=== PATIENT | male | born 1955 | race Hispanic/Latino ===

== ENCOUNTER 2019-01-17 15:39 | Inpatient (IN) | payer MEDICARE ==
[2019-01-17] MEDS ORDERED: Dextrose 5% in Water 1,000 ML IV PRN (18:01)
[2019-01-17] MEDS ORDERED: Dextrose 50% Abboject 50 ML SYRINGE SLOW IVP PRN (18:01)
[2019-01-17] MEDS ORDERED: hydrALAZINE 20 MG/ML VIAL SLOW IVP PRN (18:53)
[2019-01-17 19:37] LABS: Bilirubin Negative (Negative); Blood, Urine Negative (Negative); Clarity CLEAR (Clear); Glucose, Urine (Dipstick) 500 mg/dL (Negative); Leukocyte Negative (Negative); Nitrite Negative (Negative); Protein, Urine (Dipstick) Negative (Neg-Trace); Specific Gravity, Urine 1.008 (1.002-1.036); Urobilinogen 0.2 mg/dL (0.2-1.0); pH, Urine 5.5 (5.0-9.0)
[2019-01-17 20:26] VITALS: BMI 23.8
--- NOTE | 2019-01-17 21:03 | HP ---
CHIEF COMPLAINT: Shortness of breath. HISTORY OF PRESENT ILLNESS: The patient is a very pleasant 63-year-old male with a past medical history of diabetes, hypertension and GERD, who presents to the hospital with complaints of shortness of breath and chest pain. The patient states that he has been having shortness of breath and chest pain on and off for multiple years. However, for the past couple weeks, his shortness of breath and chest tightness have become very significantly worse. The patient states that he also has been having paroxysmal nocturnal dyspnea, which has been going on for the past few years. However, the past few days, it has been worse. He also now is complaining of shortness of breath on minimal exertion. He denies any fevers or chills. The patient also notices for the past few days he has been having significant lower extremity swelling. The patient sometimes states that he gets some chest tightness, especially when he wakes up in the middle of the night that radiates up to his neck area. He also sometimes gets diaphoretic hands and sometimes at times at night when he wakes up, feels some palpitations. He also has had a 20 pound weight gain for the past 2-3 days. The patient actually did go to his PCP who then told him to come into the ER; however, patient did not want to go to the ER at that time. The patient states that last year he did go see a internet technology manager and had a Holter monitor and also had a stress test. However, patient nor the does not recall the results of those tests. PAST MEDICAL HISTORY: 1. He has a history of diabetes. 2. Hypertension. 3. Reflux. The patient states he has been very compliant with his medication. 4. He has also had a history of neuropathy. 5. Also has a history of some headaches. 6. Fibromyalgia. 7. Hyperlipidemia. PAST SURGICAL HISTORY: 1. He has had a history of left knee replacement. 2. He has had arthroscopic of the right knee 20 years ago. ALLERGIES: HE HAS NO KNOWN ALLERGIES. MEDICATIONS: 1. He is on metformin 3 times daily. He does not know the doses. 2. Gabapentin 3 times daily. 3. Lisinopril. 4. He is on metoprolol. He does not know the doses. 5. Pantoprazole. 6. Tramadol. 7. Aspirin. REVIEW OF SYSTEMS: All negative for the ones mentioned above in the HPI. FAMILY HISTORY: His sisters have history of heart disease. None in the parents. SOCIAL HISTORY: He denies any smoking history. Occasional alcohol use. No drug use. However, he does rub marijuana and alcohol in his body for fibromyalgia, which helps him. He is a full code and lives with his . PHYSICAL EXAMINATION: VITAL SIGNS: Temperature of 98.8, 132/85, 50, and 96% on room air. GENERAL: He is awake, alert, and oriented x3. Does not appear in any distress. HEENT: Normocephalic, atraumatic. No lymphadenopathy noted. Pupils are equal and reactive to light. CV: S1 and S2 present. There is some slight systolic murmur. LUNGS: Mild crackles to bilateral lower bases. No wheezing or rhonchi noted. ABDOMEN: Soft, mild tenderness to bilateral lower quadrant below the umbilical area on palpation. EXTREMITIES: Mild lower extremity edema. Pedal pulses present x2. He does have decreased hair loss to his lower extremity. NEUROVASCULAR: He has no focal deficits noted. SKIN: He does have some scars to his lower extremity, otherwise no other lesions noted. LABORATORY RESULTS: As of the following; WBCs of 7.1, hemoglobin of 12.6, hematocrit of 35.2, platelets of 217. His chemistry, sodium of 136, potassium 4.6, creatinine 1.55. I do not have a previous one, glucose of 450. BNP of 200. His urine does look pretty essentially normal. He did not have significant amount of glucose. He did have a chest x-ray done, which according to my interpretation, appeared to be pretty significantly normal. No infiltrates were noted and EKG appears to be sinus juan. ASSESSMENT AND PLAN: The patient is a very pleasant 63-year-old male who presents to the hospital with shortness of breath. 1. Shortness of breath could be possibly due to congestive heart failure, unknown type versus coronary artery disease versus gastroesophageal reflux disease versus anxiety. At this time, we will get an echocardiogram. We will trend his troponin x3 and give him some IV diuretics and continue to monitor. We will also add a TSH on this patient. 2. Diabetes. We will continue his sliding scale insulin. We will hold the metformin for now and check a hemoglobin A1c. 3. Acute kidney injury: I am not sure what the patient's baseline creatinine is. We will hold the lisinopril for now. May get a renal ultrasound to rule out any issues. We will continue to monitor going. 4. Possible coronary artery disease. We will continue to trend his troponin. His heart rate is bradycardic. The patient's family is not aware of this. We will await and see what the echocardiogram shows. If needed, may consider getting Cardiology consult. 5. Deep venous thrombosis prophylaxis: We will put the patient on subcutaneous heparin. Job ID: [id number]
[2019-01-17] MEDS: traMADol HCl 50 MG TAB PO PRN (22:31)
[2019-01-17] MEDS: Heparin 5,000 UNITS/ML VIAL SC SCH (22:31)
[2019-01-17] MEDS: HumaLOG 300 UNITS/3 ML VIAL SC PRN (22:32)
[2019-01-17 23:04] LABS: Bilirubin Negative (Negative); Blood, Urine Negative (Negative); Clarity CLEAR (Clear); Glucose, Urine (Dipstick) >=1000 mg/dL (Negative); Leukocyte Negative (Negative); Nitrite Negative (Negative); Protein, Urine (Dipstick) Negative (Neg-Trace); Specific Gravity, Urine 1.012 (1.002-1.036); Urobilinogen 0.2 mg/dL (0.2-1.0); pH, Urine 7.5 (5.0-9.0)
[2019-01-17 23:06] LABS: Bacteria/HPF None Seen HPF (None Seen); Hyaline Casts/LPF 0-3 HYALINE CAST LPF (0-3 Hyaline); RBC/HPF 0-3 HPF (0-3); Squamous Epithelial None Seen HPF (0-3); WBC/HPF None Seen HPF (0-3)
[2019-01-17 23:07] LABS: Urine Culture Reflex No No
[2019-01-18 06:46] LABS: Hemoglobin A1c 8.2 % (4.0-6.0)
[2019-01-18 06:59] LABS: Cardiac Risk 5.9 (Less than 4.5)
--- NOTE | 2019-01-18 07:42 | ULT ---
BILATERAL RENAL ULTRASOUND: Date: 01/18/19 No prior comparison imaging. CLINICAL INDICATION: Acute kidney insufficiency, renal failure. FINDINGS: Symmetric size of each kidney measuring nearly 10.0 cm bilaterally. No overt hydronephrosis or suspic ious renal lesion. Utilizing Doppler evaluation, ureteral jets ae elicited within the urinary bladder from each ureter. Urinary bladder is grossly unremarkable. IMPRESSION: No evidence of hydronephrosis or suspicious renal lesion. POS: FLOR
[2019-01-18] MEDS ORDERED: Sodium Chloride 0.9% 10 ML ONE (08:11)
[2019-01-18] MEDS: Furosemide 40 MG/4 ML VIAL SLOW IVP SCH (08:51)
[2019-01-18] MEDS: Aspirin 81 mg Enteric Coated Tablet PO SCH (08:51)
[2019-01-18] MEDS: traMADol HCl 50 MG TAB PO PRN ×2 (09:37→17:32)
[2019-01-18] MEDS: Heparin 5,000 UNITS/ML VIAL SC SCH ×3 (09:39→21:08)
[2019-01-18] MEDS: HumaLOG 300 UNITS/3 ML VIAL SC PRN ×3 (12:37→21:08)
--- NOTE | 2019-01-18 18:31 | PDOC.PN ---
- Subjective Encounter Start Date: 01/18/19 Encounter Start Time: 11:15 Subjective: pt up in bed feels much better today - Objective Vital Signs & Weight: Vital Signs (12 hours) Temp Pulse Resp BP Pulse Ox 01/18/19 15:11 98 F 60 16 109/55 L 98 01/18/19 11:31 98.1 F 66 18 118/59 L 98 01/18/19 07:45 97.5 F L 66 16 121/57 L 97 Weight Weight 143 lb 8 oz I&O: 01/17/19 01/18/19 01/19/19 06:59 06:59 06:59 Intake Total 510 1250 Output Total 900 1550 Balance -390 -300 Additional Labs: Accuchecks 01/18/19 01/18/19 01/18/19 16:55 11:03 05:40 POC Glucose 274 H 304 H 110 01/17/19 20:32 POC Glucose 313 H Phys Exam - Physical Examination Respiratory: no wheezing, no rales, no rhonchi, wheezing present, clear to auscultation bilateral Cardiovascular: RRR, no significant murmur, no rub, gallop, irregular Gastrointestinal: soft, non-tender, no distention, positive bowel sounds Musculoskeletal: no edema, pulses present, edema present Dx/Plan (1) SOB (shortness of breath) Code(s): R06.02 - SHORTNESS OF BREATH Status: Acute (2) Diabetes Code(s): E11.9 - TYPE 2 DIABETES MELLITUS WITHOUT COMPLICATIONS Status: Acute (3) HTN (hypertension) Code(s): I10 - ESSENTIAL (PRIMARY) HYPERTENSION Status: Acute (4) BEATA (acute kidney injury) Code(s): N17.9 - ACUTE KIDNEY FAILURE, UNSPECIFIED Status: Acute - Plan will continue lasix for now -: appear diastolic HF, -: will get stress test records from [place]. -: will start pt on statin -: lisinopril on hold for beata not sure if this is his baseline * . Review of Systems - Review of Systems Respiratory: negative: Cough, Dry, Shortness of Breath, Hemoptysis, SOB with Excertion, Pleuritic Pain, Sputum, Wheezing Cardiovascular: negative: chest pain, palpitations, orthopnea, paroxysmal nocturnal dyspnea, edema, light headedness, other Gastrointestinal: negative: Nausea, Vomiting, Abdominal Pain, Diarrhea, Constipation, Melena, Hematochezia, Other Genitourinary: negative: Dysuria, Frequency, Incontinence, Hematuria, Retention , Other - Medications/Allergies Allergies/Adverse Reactions: Allergies Allergy/AdvReac Type Severity Reaction Status Date / Time No Known Drug Allergies Allergy Verified 01/17/19 21:09 Medications: Current Medications Aspirin (Ecotrin) 81 mg PO DAILY [facility] Last Admin: 01/18/19 08:51 Dose: 81 mg Dextrose/Water (Dextrose 50%) 25 gm SLOW IVP PRN PRN PRN Reason: Hypoglycemia Furosemide (Lasix) 40 mg SLOW IVP DAILY [facility] Last Admin: 01/18/19 08:51 Dose: 40 mg Gabapentin (Neurontin) 300 mg PO TID [facility] Glucagon (Glucagon) 1 mg IM PRN PRN PRN Reason: Hypoglycemia Heparin Sodium (Porcine) (Heparin) 5,000 units SC TID [facility] Last Admin: 01/18/19 14:16 Dose: 5,000 units Hydralazine HCl (Apresoline) 5 mg SLOW IVP Q6H PRN PRN Reason: SBP >= 180 Dextrose/Water (D5w) 1,000 mls @ 0 mls/hr IV .Q0M PRN PRN Reason: Hypoglycemia Insulin Human Lispro (Humalog) 0 units SC .MODERATE SLIDING SC PRN PRN Reason: Moderate Correctional Scale Last Admin: 01/18/19 17:28 Dose: 6 units Insulin Human Lispro (Humalog) 0 units SC .BEDTIME SLIDING SC PRN; Protocol PRN Reason: BEDTIME SLIDING SCALE Last Admin: 01/17/19 22:32 Dose: 4 unit Tramadol HCl (Ultram) 50 mg PO Q4H PRN PRN Reason: Pain Last Admin: 01/18/19 17:32 Dose: 50 mg
[2019-01-18] MEDS: Gabapentin 300 MG CAP PO SCH (21:08)
[2019-01-18] MEDS: Atorvastatin Calcium 40 MG TAB PO SCH (21:08)
[2019-01-19 05:07] LABS: #Eosinphils 0.1 thou/uL (0.0-0.7); #Monocytes 0.4 thou/uL (0.11-0.59); #Neutrophils 2.4 thou/uL (1.40-6.50); %Basophils 1.1 % (0.0-1.0); %Eosinophils 3.2 % (0.0-10.0); %Lymphocytes 25.2 % (21.0-51.0); %Monocytes 9.2 % (0.0-10.0); %Neutrophils 61.3 % (42.0-75.0); Hemoglobin 12.8 g/dL (14.0-18.0); Mean Corpuscular HGB CONC 34.3 g/dL (32.0-36.0); Mean Corpuscular Hemoglobin 30.9 pg (27.0-31.0); Mean Corpuscular Volume 90.2 fL (78.0-98.0); Mean Platelet Volume 7.7 fL (7.4-10.4); Platelet Count 197 thou/uL (130-400); RBC Distribution Width 11.3 % (11.5-14.5); Red Blood Cell (RBC) Count 4.15 mill/uL (4.70-6.10); White Blood Cell (WBC) Count 3.9 thou/uL (4.8-10.8)
[2019-01-19 05:26] LABS: Anion Gap 15 mmol/L (10-20); BUN (Urea Nitrogen) 11 mg/dL (8.4-25.7); Calc. Creatinine Clearance 58 mL/min (70-130); Calcium 9.9 mg/dL (7.8-10.44); Carbon Dioxide 26 mmol/L (23-31); Chloride 102 mmol/L (98-107); Estimated GFR-MDRD 62; Glucose 215 mg/dL (80-115); Potassium 3.7 mmol/L (3.5-5.1); Sodium 139 mmol/L (136-145)
[2019-01-19] MEDS: Aspirin 81 mg Enteric Coated Tablet PO SCH (08:26)
[2019-01-19] MEDS: Gabapentin 300 MG CAP PO SCH ×3 (08:26→20:26)
[2019-01-19] MEDS: Heparin 5,000 UNITS/ML VIAL SC SCH ×3 (08:26→20:26)
[2019-01-19] MEDS: Furosemide 40 MG/4 ML VIAL SLOW IVP SCH (08:26)
[2019-01-19] MEDS ORDERED: traMADol HCl 50 MG TAB PO PRN (10:03)
--- NOTE | 2019-01-19 10:06 | PDOC.PN ---
- Subjective Encounter Start Date: 01/19/19 Encounter Start Time: 11:40 Subjective: Patient with some chest pressure and palpitaiton this AM when had -: a short episode of heart block. Also with a non-sustained run of -: PACs. No other complaints. - Objective MAR Reviewed: Yes Vital Signs & Weight: Vital Signs (12 hours) Temp Pulse Resp BP Pulse Ox 01/19/19 08:00 97.8 F 68 16 134/71 94 L 01/19/19 03:14 98.0 F 70 16 129/71 94 L 01/19/19 00:00 92 L Weight Weight 143 lb 4.8 oz I&O: 01/18/19 01/19/19 01/20/19 06:59 06:59 06:59 Intake Total 510 1700 Output Total 900 1850 Balance -390 -150 Result Diagrams: 01/19/19 04:16 01/19/19 04:16 Additional Labs: Accuchecks 01/18/19 01/18/19 01/18/19 20:39 16:55 11:03 POC Glucose 225 H 274 H 304 H Phys Exam - Physical Examination Constitutional: NAD HEENT: moist MMs Respiratory: no wheezing, no rales, no rhonchi Cardiovascular: RRR, no significant murmur Gastrointestinal: soft, positive bowel sounds Musculoskeletal: no edema Neurological: non-focal, moves all 4 limbs Psychiatric: normal affect, A&O x 3 Dx/Plan (1) Acute diastolic CHF, NYHA class 2 and ACC/AHA stage C Code(s): I50.31 - ACUTE DIASTOLIC (CONGESTIVE) HEART FAILURE Status: Acute Comment: Improved with Lasix, will need to go home on fluid restriction and Lasix (2) BEATA (acute kidney injury) Code(s): N17.9 - ACUTE KIDNEY FAILURE, UNSPECIFIED Status: Acute Comment: uncertain baseline, improved with Lasix, will resume Lisinopril (3) HTN (hypertension) Code(s): I10 - ESSENTIAL (PRIMARY) HYPERTENSION Status: Chronic Qualifiers: Hypertension type: essential hypertension Qualified Code(s): I10 - Essential (primary) hypertension Comment: Well controlled (4) Diabetes Code(s): E11.9 - TYPE 2 DIABETES MELLITUS WITHOUT COMPLICATIONS Status: Chronic Qualifiers: Diabetes mellitus type: type 2 Diabetes mellitus prison insulin use: without prison use Comment: resume Metformin now that creatinine improved (5) Arrhythmia Code(s): I49.9 - CARDIAC ARRHYTHMIA, UNSPECIFIED Status: Acute - Plan cont current plan of care, DVT proph w/heparin consult cardiology, possibly home if no further interventions necessary * . - Discharge Day Encounter end time: 11:50
[2019-01-19] MEDS: metFORMIN 500 MG TAB PO SCH ×2 (11:32→17:43)
[2019-01-19] MEDS: HumaLOG 300 UNITS/3 ML VIAL SC PRN ×2 (11:34→17:43)
[2019-01-19] MEDS: Atorvastatin Calcium 40 MG TAB PO SCH (20:26)
[2019-01-19] MEDS ORDERED: Atorvastatin Calcium 40 MG TAB PO SCH ×2 (21:00→22:15)
--- NOTE | 2019-01-19 22:09 | CON ---
DATE OF CONSULTATION: HISTORY: Jeffery Remy is a 63-year-old male, whose main language is [place]ian and his provides translation. He states that at times he will wake at night with burning in his chest and shortness of breath; however, this seems to resolve in 30 seconds. Also at times during the day, he may develop chest and jaw discomfort. The jaw discomfort will last for 2 days continuously. He does have some dyspnea on exertion. He was sent by his primary physician to the emergency room after apparently a 20 pounds weight gain over 2 or 3 days. PAST MEDICAL HISTORY: Hypertension, diabetes, hypercholesterolemia, fibromyalgia, GERD, and diabetic neuropathy. OPERATIONS: Left knee replacement, right knee arthroscopy. MEDICATIONS: 1. Amlodipine 10 mg daily. 2. Aspirin 81 daily. 3. Gabapentin 600 mg t.i.d. 4. Lisinopril 40 daily. 5. Losartan/hydrochlorothiazide 100/12.5 daily. 6. Glucophage 1000 mg b.i.d. 7. Metoprolol 50 b.i.d. 8. Pantoprazole 40 mg daily. 9. Simvastatin 40 at bedtime. 10. Tramadol 50 t.i.d. p.r.n. ALLERGIES: NONE. SOCIAL HISTORY: He does not smoke. Rarely drinks. FAMILY HISTORY: Multiple siblings have had coronary artery problems. REVIEW OF SYSTEMS: A 10-point review of systems is otherwise unremarkable. PHYSICAL EXAMINATION: VITAL SIGNS: Blood pressure 117/69, pulse of 80. HEENT: PERRL. CHEST: Clear. CARDIAC: S1 and S2 normal without any S3, S4, or murmurs. Carotid upstrokes are normal without bruits. ABDOMEN: Normal bowel sounds without tenderness or organomegaly. EXTREMITIES: Revealed no clubbing, cyanosis, or edema. NEUROLOGIC: Grossly intact. SKIN: Warm and dry. LABORATORY DATA: EKG reveals sinus bradycardia, otherwise unremarkable. He does have one episode of Mobitz type I second-degree AV block (Wenckebach). Sodium 139, potassium 3.7, chloride 102, carbon dioxide 26, BUN 11, and creatinine 1.18. Cholesterol 237, triglycerides 189, HDL 40, and LDL 159. TSH is normal. Cardiac enzymes are unremarkable. Hemoglobin 12.8, hematocrit 37.4, white count 3900, and platelets 197,000. Echocardiogram revealed mild left ventricular hypertrophy with ejection fraction of 60% to 65%, trace mitral regurgitation, trace tricuspid regurgitation. IMPRESSION: 1. Atypical chest discomfort and shortness of breath. 2. Hypertension, on multiple medicines at home. Certainly, the amlodipine that apparently was started recently may have led to his peripheral edema. However, at the present time, he does not have any edema. Currently, his blood pressure is very well controlled, just on lisinopril 20 mg daily. 3. Hypercholesterolemia under very poor control despite being on simvastatin 40 mg at bedtime. 4. Diabetes. PLAN: The patient will be switched to atorvastatin 80 mg at bedtime in a diabetic with an LDL of 159. He certainly may require second medication to treat with LDL goal of less than 70. I doubt that his symptoms are cardiac in nature, although he does have multiple cardiac risk factors. He will undergo adenosine Cardiolite testing in the morning. Job ID: [id number]
--- NOTE | 2019-01-20 08:35 | PDOC.PN ---
- Subjective Encounter Start Date: 01/20/19 Encounter Start Time: 11:50 Subjective: Patient without complaints O/N. Stress test done this morning. No current -: chest pain or SOB. - Objective MAR Reviewed: Yes Vital Signs & Weight: Vital Signs (12 hours) Temp Pulse Resp BP Pulse Ox 01/20/19 04:00 97.9 F 81 18 137/74 96 Weight Weight 137 lb I&O: 01/19/19 01/20/19 01/21/19 06:59 06:59 06:59 Intake Total 1700 1470 Output Total 1850 300 Balance -150 1170 Result Diagrams: 01/19/19 04:16 01/19/19 04:16 Additional Labs: Accuchecks 01/20/19 01/19/19 01/19/19 05:38 20:29 16:49 POC Glucose 224 H 193 H 263 H 01/19/19 11:03 POC Glucose 351 H Phys Exam - Physical Examination Constitutional: NAD HEENT: moist MMs Respiratory: no wheezing, no rales, no rhonchi Cardiovascular: RRR, no significant murmur Gastrointestinal: soft, positive bowel sounds Musculoskeletal: no edema Neurological: non-focal, moves all 4 limbs Psychiatric: normal affect, A&O x 3 Dx/Plan (1) Acute diastolic CHF, NYHA class 2 and ACC/AHA stage C Code(s): I50.31 - ACUTE DIASTOLIC (CONGESTIVE) HEART FAILURE Status: Acute Comment: Improved with Lasix, will need to go home on fluid restriction and Lasix (2) BEATA (acute kidney injury) Code(s): N17.9 - ACUTE KIDNEY FAILURE, UNSPECIFIED Status: Acute Comment: uncertain baseline, improved with Lasix, will resume Lisinopril (3) HTN (hypertension) Code(s): I10 - ESSENTIAL (PRIMARY) HYPERTENSION Status: Chronic Qualifiers: Hypertension type: essential hypertension Qualified Code(s): I10 - Essential (primary) hypertension Comment: Well controlled (4) Diabetes Code(s): E11.9 - TYPE 2 DIABETES MELLITUS WITHOUT COMPLICATIONS Status: Chronic Qualifiers: Diabetes mellitus type: type 2 Diabetes mellitus terminal gauger supervisor insulin use: without fpc use Comment: resume Metformin now that creatinine improved (5) Arrhythmia Code(s): I49.9 - CARDIAC ARRHYTHMIA, UNSPECIFIED Status: Acute (6) Hyperlipidemia Code(s): E78.5 - HYPERLIPIDEMIA, UNSPECIFIED Status: Chronic Qualifiers: Hyperlipidemia type: mixed hyperlipidemia Qualified Code(s): E78.2 - Mixed hyperlipidemia Comment: changing to atorvastatin 80mg daily due to uncontrolled chol on simvastatin - Plan cont current plan of care, DVT proph w/heparin start Lasix, stop Losartan/HCTZ and Amlodipine, cut down dose of -: Lisinopril due to renal insufficiency and BP well controlled on just 20 in -: hospital. F/u with cardiology O/P. Discussed with Dr. Jules and he has -: cleared him to go home. * . - Discharge Day Encounter end time: 12:10
[2019-01-20] MEDS ORDERED: Lisinopril 20 MG TAB PO SCH (09:00)
[2019-01-20] MEDS ORDERED: ADENOSINE 60 MG/20 ML VIAL ONE (09:49)
[2019-01-20] MEDS: metFORMIN 500 MG TAB PO SCH ×2 (11:32→13:50)
[2019-01-20] MEDS: Aspirin 81 mg Enteric Coated Tablet PO SCH (11:32)
[2019-01-20] MEDS: Heparin 5,000 UNITS/ML VIAL SC SCH (11:33)
[2019-01-20] MEDS: Gabapentin 300 MG CAP PO SCH (11:33)
[2019-01-20] MEDS: Furosemide 40 MG/4 ML VIAL SLOW IVP SCH (11:33)
[2019-01-20 12:01] VITALS: BP 144/77
[2019-01-20 12:48] VITALS: TEMP 98.1
--- NOTE | 2019-01-20 13:12 | NM ---
MYOCARDIAL PERFUSION STUDY: Date: 01-20-19 History: Chest pain. Radiopharmaceutical: 32 mCi Technetium 99M Sestamibi, IV at stress and 9.4 mCi Technetium 99M Sestami bi, IV at rest. Medication: 12.1 ml (32.4 mg) Adenosine, IV. FINDINGS: There is normal uptake and distribution of radiotracer seen throughout the left ventricular myocardiu m. No reversible defect is identified. Quantitative analysis shows no significant reversible defect o n the non-attenuation corrected images. The gated images demonstrate normal ventricular wall motion and wall thickening. The calculated left ventricular ejection fraction is 75%. IMPRESSION: 1. Normal myocardial perfusion study without evidence of a reversible defect seen to suggest ischemia . 2. Normal LVEF of 75%. POS: DEEPALI
--- NOTE | 2019-01-20 14:17 | DIS ---
DATE OF ADMISSION: 01/17/2019 DATE OF DISCHARGE: 01/20/2019 PRIMARY CARE PHYSICIAN: [facility]. REASON FOR ADMISSION: Shortness of breath. DIAGNOSES AT DISCHARGE: 1. Acute diastolic congestive heart failure, class II. 2. Acute kidney injury, improved. 3. Hypertension. 4. Diabetes mellitus type 2. 5. Hyperlipidemia. 6. Occasional palpitations without malignant arrhythmias. PROCEDURES: 1. Renal ultrasound showing no evidence of hydronephrosis, suspicious for renal lesions or small kidney size. 2. Echocardiogram showing ejection fraction of 60% to 65%, mild left ventricular hypertrophy. 3. Nuclear medicine stress test with adenosine showing normal uptake and no reversible defects and a normal ejection fraction. CONSULTATIONS: Cardiology, Dr. Jules. SUMMARY OF HOSPITAL COURSE: This is a 63-year-old male with a history of hypertension and type 2 diabetes, on metformin along with hyperlipidemia. He came in complaining of shortness of breath. The patient also has had shortness of breath and chest pain/palpitation episodes for years, but significantly worse over the last few days. The palpitations will occasionally wake him up at night. He gets very scared from them, but he has actually had episodes of waking up short of breath for the last few days and he has been having worsening dyspnea on exertion. The patient was found to have an elevated brain natriuretic peptide. He was also noted to be bradycardic. He had lower extremity edema. The patient had an elevated creatinine of 1.55 without any known history of renal disease. The patient was admitted. He had IV Lasix given with resolution of his edema and improvement in shortness of breath. Echocardiogram showed no evidence for systolic dysfunction, this is a diastolic congestive heart failure. The patient was back to baseline after a couple days of IV Lasix. His creatinine also improved to normal after the IV Lasix as well. The patient did have an episode of the palpitations in the hospital, though no chest pain. At that time, he was noted to have just a couple of seconds of a second-degree AV block type 1. Dr. Jules was consulted during hospitalization. After looking at the telemetry monitoring, he did not note any dangerous arrhythmias, but did recommend a stress test to make sure there was no coronary artery disease for source of the congestive heart failure and the chest pain episodes. The patient had a nuclear medicine stress test, which was normal and he is now cleared to go home. DISCHARGE MANAGEMENT: Discharged to home. FOLLOWUP: Follow up with the [facility] in [address] Jules in the next 2 weeks. ACTIVITY: As tolerated. DIET: Diabetic, fluid-restricted, low-sodium diet. MEDICATIONS: 1. Atorvastatin 80 mg at night, 30 tablets dispensed. He is to stop the simvastatin. 2. Lisinopril 20 mg daily, 30 tablets dispensed. 3. Furosemide 20 mg daily, 30 tablets dispensed. 4. Resume tramadol as needed. 5. Resume Protonix 40 mg daily. 6. Resume metformin 1000 mg twice a day. 7. Resume gabapentin 800 mg 3 times a day. The patient is to stop his losartan/hydrochlorothiazide, his amlodipine, and his metoprolol due to the bradycardia. Arranging the details of this discharge took 35 minutes. Job ID: [id number]
[2019-01-20] MEDS ORDERED: Gabapentin 400 MG CAP PO SCH (15:00)
[2019-01-20] MEDS ORDERED: metFORMIN 500 MG TAB PO SCH (17:00)
[2019-01-20] MEDS ORDERED: Metoprolol Tartrate 50 MG TAB PO SCH (21:00)
== END 2019-01-20 15:23 | disposition home or self-care (01) | DRG 291 ==
LOC: ERS 15:39 → ERHOLD 16:58 → 2NO 20:17
PROVIDERS: ADMIT Internal Medicine; ATTEND Internal Medicine
DX: I11.0 Hypertensive heart disease with heart failure (principal); I50.31 Acute diastolic (congestive) heart failure; N17.9 Acute kidney failure, unspecified; E78.5 Hyperlipidemia, unspecified; M79.7 Fibromyalgia; K21.9 Gastro-esophageal reflux disease without esophagitis; I44.1 Atrioventricular block, second degree; E11.40 Type 2 diabetes mellitus with diabetic neuropathy, unspecified; R00.2 Palpitations; Z96.652 Presence of left artificial knee joint; Z79.84 Long term (current) use of oral hypoglycemic drugs; Z79.82 Long term (current) use of aspirin
CPT/HCPCS: 36415; 36416; 76770; 78452; 80048; 80061; 81003; 83036; 84443; 85025; 93005; 93017; 93306; 94760; A9500; J0153; J1610; J1644; J1940